=== PATIENT | female | born 1995 | race Caucasian/White ===

== ENCOUNTER 2022-01-11 14:16 | Emergency (ER) | payer OTHER, SELFPAY ==
[2022-01-11 14:27] VITALS: BP 149/70; PULSE 120; RESP 18; TEMP 37.3; O2SAT 100; BMI 28.5
--- NOTE | 2022-01-11 16:42 | DI.US.S_ITS ---
PROCEDURE: US OB <= 14 WEEKS FETUS INDICATIONS: VAG BLEEDING 10 WEEKS OUTSIDE/PRIOR DATING DATA: Last menstrual period (LMP): November 02, 2021. LMP-based estimated date of delivery (ALLY): August 09, 2022 First dating scan (date): January 11, 2022. Estimated date of delivery (ALLY) from first dating scan: August 04, 2022 TECHNIQUE: Real-time scanning was performed of the fetus and maternal pelvic organs, with image documentation. Endovaginal scanning was also performed to better visualize the fetus and maternal ovaries. COMPARISON: None. FINDINGS: Embryo: Mean crown-rump length measures 3.8 cm, compatible with a 10 week, 5 day gestation. Heart rate: 175 beats per minute Maternal organs: Ovaries demonstrate left corpus luteum. Hypoechoic lesions within the uterus, likely reflecting nabothian cysts. IMPRESSION: Single live intrauterine gestation as detailed above. We strive to produce accurate, complete, and clear reports of imaging services. To assist us in improving patient care, this report was composed using standard report templates and voice recognition software. Therefore, it may contain abnormal punctuation, insertions and/or omissions. Occasional wrong-word or sound-alike substitutions may occur. Though we review the report and make efforts to correct it, we do recommend that the report be read carefully in proper context to recognize any text inaccuracies. Dictated by: Robert Chase M.D. on 01/11/2022 at 17:28 Approved by: Robert Chase M.D. on 01/11/2022 at 17:31
[2022-01-11 18:13] VITALS: BP 120/68; PULSE 90; RESP 16; O2SAT 100
--- NOTE | 2022-01-11 18:15 | ED.FEMALEGU ---
HPI - Female Genitourinary General Chief complaint: Urogenital-Female Stated complaint: 10 wks , excessive bleeding Time Seen by Provider: 01/11/22 17:01 Source: patient Mode of arrival: Ambulatory History of Present Illness HPI Narrative: 26-year-old female nonsmoker with noncontributory medical history is a at 10 weeks presents with a chief complaint of the passage of a small dark clot vaginally that she noted in her underwear prior to arrival. She is not dizzy nor weak or lightheaded. She denies any fever or chills. She had a brief episode of pelvic cramping which has since resolved. She states that she knows her blood type is O-positive. She and her are visiting locally from [place] and [employer]. Review of Systems Review of Systems Narrative: GENERAL: Denies chills, fatigue, malaise, fever, sweats. HEENT: Denies sinus pain, ear pain, sore throat, difficulty swallowing, dizziness. RESPIRATORY: Denies dyspnea, cough, wheezing, hemoptysis, sputum. CARDIOVASCULAR: Denies chest pain, palpitations, orthopnea, edema, GASTROINTESTINAL: Denies nausea, vomiting, abdominal pain, diarrhea, constipation, melena. : Denies dysuria, frequency, incontinence, hematuria, urinary retention. MUSCULOSKELETAL: denies weakness, joint pain, or bony pain SKIN: Denies rash, skin lesions, or other NEUROLOGIC: Denies weakness, headache, numbness, change in speech, confusion, seizures, incoordination. PSYCHIATRIC: No concerning psychosocial issues. 12 point review of systems is negative except for those stated above Patient History Substance Use Type: does not use Exam Narrative Exam Narrative: GENERAL: [26 year old patient appears stated age. Well-developed patient, in mild distress. HEAD: Atraumatic. Normocephalic. EYES: Pupils equal round and reactive. Extraocular motions intact. No scleral icterus. No injection or drainage. ENT: Nose without bleeding, purulent drainage. Throat without erythema, tonsillar hypertrophy or exudate. Airway patent. NECK: Trachea midline. Non tender CARDIOVASCULAR: Regular rate and rhythm without murmurs, gallops, or rubs. RESPIRATORY: Clear to auscultation. Breath sounds equal bilaterally. No wheezes, rales, or rhonchi. GASTROINTESTINAL: Abdomen soft, non-tender, nondistended. EXTREMITIES: No edema or joint tenderness. BACK: Nontender without deformity or crepitance. No flank tenderness. NEURO: AOx3. SKIN: No rash or erythema of visible areas Initial Vital Signs Initial Vital Signs: Vital Signs Temperature 99.2 F 01/11/22 14:27 Pulse Rate 120 H 01/11/22 14:27 Respiratory Rate 18 01/11/22 14:27 Blood Pressure 149/70 H 01/11/22 14:27 Pulse Oximetry 100 01/11/22 14:27 Course Orders Ordered: ED Orders 01/11/22 16:42 US OB <= 14 weeks fetus Stat 01/11/22 17:10 BMP [Basic Metabolic Panel] Stat CBC Auto Diff [Complete Blood Count AUTO DIFF] Stat Type and Screen Stat Vital Signs Vital signs: Vital Signs - 8 hr 01/11/22 14:27 01/11/22 18:13 Temperature 99.2 F Pulse Rate 120 H 90 Respiratory Rate 18 16 Blood Pressure 149/70 H 120/68 Pulse Oximetry 100 100 MDM - Female Genitourinary Lab Data Result diagrams: 01/11/22 17:10 01/11/22 17:10 Labs: Lab Results 01/11/22 01/11/22 Range/Units 17:10 17:10 WBC 10.0 (4.5-11.0) X10^3/uL RBC 4.53 (4.0-5.2) X10^6/uL Hgb 13.6 (12.0-16.0) g/dL Hct 39.4 (36-46) % MCV 87.0 (80-100) fL MCH 30.1 (26-34) PG MCHC 34.5 (30-36) % RDW 13.0 (11.6-14.8) % Plt Count 258 (150-400) X10^3/uL Neut % (Auto) 72.1 (50-75) % Lymph % (Auto) 20.5 L (25-40) % [place] % (Auto) 6.0 (3-14) % Eos % (Auto) 0.8 L (2-4) % Baso % (Auto) 0.6 (0-2) % Neut # (Auto) 7200 H (8920-7574) /uL Lymph # (Auto) 2100 (7577-2410) /uL [place] # (Auto) 600 (0-900) /uL Eos # (Auto) 100 (0-450) /uL Baso # (Auto) 100 (0-100) /uL Sodium 136 L (137-145) mmol/L Potassium 3.7 (3.4-5.1) mmol/L Chloride 105 (98-107) mmol/L Carbon Dioxide 23 (22-32) mmol/L BUN 7 (7-17) mg/dL Creatinine 0.33 L (0.52-1.04) mg/dL Estimated GFR > 60.0 (>60) mL/min BUN/Creatinine Ratio 21.2 (6-22) Glucose 87 (70-100) mg/dL Calcium 9.6 (8.4-10.2) mg/dL Point of Care Testing Test Results Positive Urine Dip Bedside Urine Glucose Negative Bedside Urine Bilirubin - Negative Bedside Urine Ketone - Negative Urine Specific Reading 1.015 Bedside Urine Occult Blood ++ Bedside Urine pH 6.0 Bedside Urine Protein - Negative Bedside Urine Urobilinogen - Negative Bedside Urine Nitrite - Negative Bedside Urine Leukocytes - Negative Esterase Imaging Data US - OB: Radiologist's Impression: [place] [address] Ultrasound Report Signed Patient: Veena Vega MR#: [id number] : 1995 Acct:[id number] Age/Sex: 26 / F Date of Service: 01/11/22 Loc: Accession Number: [id number] ?? Procedure: US OB <= 14 weeks fetus Ordering Provider: Marivel Harris PROCEDURE:? US OB <= 14 WEEKS FETUS ? INDICATIONS:? VAG BLEEDING 10 WEEKS ? OUTSIDE/PRIOR DATING DATA:? Last menstrual period (LMP):? November 02, 2021.? LMP-based estimated date of delivery (ALLY):? August 09, 2022 First dating scan (date):? January 11, 2022. Estimated date of delivery (ALLY) from first dating scan:? August 04, 2022 ? TECHNIQUE:? Real-time scanning was performed of the fetus and maternal pelvic organs, with image documentation.? Endovaginal scanning was also performed to better visualize the fetus and maternal ovaries.? ? COMPARISON:? None. ? FINDINGS:? ? Embryo:? Mean crown-rump length measures 3.8 cm, compatible with a 10 week, 5 day gestation. Heart rate:? 175 beats per minute ? Maternal organs:? Ovaries demonstrate left corpus luteum. ? Hypoechoic lesions within the uterus, likely reflecting nabothian cysts. ? ? IMPRESSION:? Single live intrauterine gestation as detailed above. ? We strive to produce accurate, complete, and clear reports of imaging services. To assist us in improving patient care, this report was composed using standard report templates and voice recognition software. Therefore, it may contain abnormal punctuation, insertions and/or omissions. Occasional wrong-word or sound-alike substitutions may occur. Though we review the report and make efforts to correct it, we do recommend that the report be read carefully in proper context to recognize any text inaccuracies. ? Dictated by: Robert Chase M.D. on 01/11/2022 at 17:28 ? ? Approved by: Robert Chase M.D. on 01/11/2022 at 17:31 ? Discharge Plan Departure Patient Disposition: Home Clinical Impression: First-trimester bleeding Instructions: DI for Vaginal Bleeding During Activity Restrictions/Additional Instructions: *You have been diagnosed with [1 minor bleeding in 1st trimester. Your history and physical exam are very reassuring as are the blood work and ultrasound. As we discussed, there is no way to definitively say this is not early miscarriage, but this is why we encourage close follow up with your medical team *What to do: *Please continue to take your regular medications as directed. [ ] New medication prescriptions sent to your pharmacy: [ ] [ ] New medication written as a paper prescription [x ] No new medications given *Please follow up with your primary care provider in 2-3 days, call for an appointment. Let them know you were seen in the Emergency Department and that we ask that you be seen in follow up. We will electronically transmit a record of today's note if your PCP is in our system *If you do not have a primary care provider please contact the [facility] Resource line at [phone]. They will ask some questions about your medical history and help get you set up with a doctor in the community. *Return to Emergency Department if you should have any new, worsening or concerning symptoms, such as [fever greater than 101 F, dizziness, weakness, lightheadedness, increased bleeding such as that which would saturate 1 pad per hour, or other bothersome symptoms
[2022-01-11 18:25] LABS: Add Manual Diff / Slide Review NO; Basophils Absolute Auto 100 /uL (0-100); Basophils Percent Auto 0.6 % (0-2); Eosinophils Absolute Auto 100 /uL (0-450); Eosinophils Percent Auto 0.8 % (2-4); Hematocrit 39.4 % (36-46); Hemoglobin 13.6 g/dL (12.0-16.0); Lymphocytes Absolute Auto 2100 /uL (1100-4500); Lymphocytes Percent Auto 20.5 % (25-40); Mean Corpuscular HGB Conc 34.5 % (30-36); Mean Corpuscular Hemoglobin 30.1 PG (26-34); Monocytes Absolute Auto 600 /uL (0-900); Neutrophils Absolute Auto 7200 /uL (1500-7000); Neutrophils Percent Auto 72.1 % (50-75); Platelet Count 258 X10^3/uL (150-400); Red Blood Cell Count 4.53 X10^6/uL (4.0-5.2)
[2022-01-11 18:37] LABS: BUN Creatinine Ratio 21.2 (6-22); Blood Urea Nitrogen 7 mg/dL (7-17); Calcium 9.6 mg/dL (8.4-10.2); Carbon Dioxide 23 mmol/L (22-32); Chloride 105 mmol/L (98-107); Estimated Glomerular Filt Rate > 60.0 mL/min (>60); Glucose 87 mg/dL (70-100); HEMOLYSIS < 15 (0-50); Potassium 3.7 mmol/L (3.4-5.1); Sodium 136 mmol/L (137-145)
== END 2022-01-11 20:41 | disposition home or self-care (01) ==
PROVIDERS: Emergency Provider Emergency Medicine
DX: O20.9 Hemorrhage in early pregnancy, unspecified (principal); Z3A.10 10 weeks gestation of pregnancy
CPT/HCPCS: 76801; 76817; 80048; 81003; 81025; 85025; 86850; 86900; 86901; 99282; 99284

== ENCOUNTER → 2022-06-20 17:37 | Outpatient (CLI) | payer OTHER, SELFPAY | PROVIDERS: Visit Provider Obstetrics & Gynecology | DX: Z34.03 Encounter for supervision of normal first pregnancy, third trimester (principal) | CPT/HCPCS: 87086 ==

== ENCOUNTER 2022-06-30 18:13 | Outpatient (CLI) | payer OTHER, SELFPAY | END 2022-06-30 20:00 | disposition home or self-care (01) | LOC: OB 07-03 12:52 | PROVIDERS: Referring Provider Obstetrics & Gynecology; Visit Provider Obstetrics & Gynecology | DX: O36.8130 Decreased fetal movements, third trimester, not applicable or unspecified (principal); Z3A.34 34 weeks gestation of pregnancy | CPT/HCPCS: 59025; G0378; G0379 ==

== ENCOUNTER 2022-07-03 09:17 | Observation (INO) | payer OTHER, SELFPAY ==
[2022-07-03 10:22] LABS: Appearance Urine UA CLOUDY; Bilirubin Urine UA NEGATIVE (NEGATIVE); Color Urine UA RED; Glucose Urine UA NEGATIVE (Negative); Ketones Urine UA NEGATIVE (NEGATIVE); Leukocyte Esterase Urine UA 2+ (NEGATIVE); Nitrite Urine UA NEGATIVE (Negative); Protein Urine UA 2+ (Negative); Urobilinogen Urine UA 0.2 E.U./dL (0.2)
[2022-07-03 10:26] LABS: pH Urine UA 6.5 (4.5-8.0)
[2022-07-03 10:27] LABS: Bacteria Urine Moderate (10-30); Culture Indicated Urine Specimen Cultured; Occult Blood Urine UA 4+ (Negative); RBC Urine >100/HPF (0-5/HPF); Squamous Epithelial Cell Urine 0-1 /HPF (0-5/HPF); WBC Urine 5-10/HPF (0-5/HPF)
--- NOTE | 2022-07-03 10:40 | PM.OBTRLD ---
Visit Information Visit Information Date of evaluation: 07/03/22 Primary OB Provider: Rashid Licea On-call OB Provider: Cathy Keller Reason for Evaluation: Yes other Comments/Additional reasons for admission: Hematuria, dysuria 26 yo G1 at 34wk5d LAYA presents due to hematuria. She had 3-4 days of dysuria and urinary frequency. Dysuria has improved, but having intermittent cramping in lower back, similar to her past menstrual cramps. Saw blood in her urine today. Not feeling abdominal tightening. recent urine culture in office 2 weeks ago was negative. She had reported being treated for a UTI early May, had just finished antibiotics. On review of her records after her recent new OB office visit, also noted treated for UTI in December, With Enterococcus and Staph haemolyticus in December urine culture. Positive GBS also seen in the urine. Vital Signs Vital Signs: Afebrile, BP normal [facility] Medical History (Updated 07/04/22 @ 03:48 by Cathy Keller MD) Dysmenorrhea History of PCOS Hypertension Uterine polyp Family History (Updated 06/05/22 @ 15:41 by Lelo Plaza RN) Father Hypertension Hyperlipidemia Grandfather Diabetes mellitus Myocardial infarction Grandfather Cancer Social History marital status: number of children: 0 household members: spouse lives independently: Yes housing: house pets and animals: Yes (1 cat) education level: college (elizabeth's degree) occupational status: unemployed current occupational exposures/hazards: No special khurram needs: No travel history: recent ([place] and [place]) seatbelt use: always water heater temp set < 120 deg: Yes (Will check ) working smoke detector in home: Yes fire extinguisher in home: Yes carbon monox detector in home: Yes firearms in home: Yes do you feel safe at home: Yes Smoking Status: Never smoker second hand exposure: No alcohol intake: former substance use type: does not use during the past year weight has: increased > 10 lbs well-balanced diet: daily or most days daily servings fruits/ve-4 caffeine: Yes (occasionally, aware of 200mg limit) Type(s) of exercise: none (I used to walk) Exam Vital Signs (past 8 hours): afebrile, BP normal Narrative Exam Narrative: general: Well-appearing female in no acute distress Back: No CVA tenderness bilaterally. Abdomen: Gravid. Mild discomfort with palpation in lower abdomen suprapubically. No other tenderness. Objective Labs Labs: Laboratory Results - last 24 hr 07/03/22 09:46 Urine Color Red Urine Appearance Cloudy Urine pH 6.5 Ur Specific [place] 1.010 Urine Protein 2+ H Urine Glucose (UA) Negative Urine Ketones Negative Urine Occult Blood 4+ H Urine Nitrate Negative Urine Bilirubin Negative Urine Urobilinogen 0.2 Ur Leukocyte Esterase 2+ H Urine RBC >100/hpf H Urine WBC 5-10/hpf H Ur Squamous Epith Cells 0-1 /hpf Urine Bacteria Moderate (10-30) H Ur Culture Indicated? Specimen cultured Evaluation Evaluation Comments: EFM Cat 1 [place]: no contractions Urinalysis: +blood,+protein,+le[place]k Micro: moderate bacteria, 4+rbs, 5-10wbc Diagnosis, Plan/Disposition Plan/Disposition Plan: 34wk5d with UTI, possible early pyelonephritis. Bilateral lower back discomfort, feels similar to her past dysmenorrhea,likely uterine cramping. In treating her for UTI however, will cover her for possible early pyelonephritis. UCx sent. Ceftriaxone 150 mg IM x1 given. Will discharge home on Cefpoxime 100 mg BID x7d. Discussed with her repeat urine culture after treatment and would recommend continue on an antibiotic daily for UTI suppression Will order an outpatient renal US to r/o stone or renal source of infection. OB Disposition: home
[2022-07-03] MEDS: cefTRIAXone 2,000 MG VIAL 1000 MG IM (11:55)
== END 2022-07-03 12:15 | disposition home or self-care (01) ==
PROVIDERS: Admitting Provider Obstetrics & Gynecology; Referring Provider Obstetrics & Gynecology; Visit Provider Obstetrics & Gynecology
DX: O23.43 Unspecified infection of urinary tract in pregnancy, third trimester (principal); Z3A.34 34 weeks gestation of pregnancy
CPT/HCPCS: 59025; 59050; 81001; 87086; 96372; G0378; G0379; J0696

== ENCOUNTER → 2022-07-06 16:55 | Outpatient (CLI) | payer OTHER, SELFPAY ==
--- NOTE | 2022-07-06 16:57 | DI.US.S_ITS ---
PROCEDURE: US RENAL COMPLETE INDICATIONS: evaluate for stones, abcess TECHNIQUE: Real-time scanning was performed of the kidneys and bladder, with image documentation. COMPARISON: None. FINDINGS: Kidneys: Kidneys are normal in size. Right kidney measures 12.8 cm long; left kidney measures 11.0 cm long. Right renal cortical thickness is 1.2 cm; left renal cortical thickness is 1.4 cm. Renal cortical echotexture is normal. There is mild right hydronephrosis which persists postvoid. No right nephrolithiasis. There is a 7 mm echogenic focus within the lateral left kidney suggesting a nonobstructing stone. Bladder: Pre-void bladder volume is 152 mL. Post-void residual is 0 mL. Pre-void images demonstrate no intraluminal masses or stones. On pre-void images, the left ureteral jet is noted with color Doppler interrogation. (Of note, ureteral jets may not be detectable in up to 25% of cases due to insufficient differences in specific gravity between ureteral and bladder urine). Miscellaneous: No free pelvic fluid. IMPRESSION: 1. Mild right hydronephrosis which persists postvoid. 2. Nonobstructing left nephrolithiasis. Dictated by: Felicity Madrigal M.D. on 07/07/2022 at 10:17 Approved by: Felicity Madrigal M.D. on 07/07/2022 at 10:18
== END ==
PROVIDERS: Referring Provider Obstetrics & Gynecology; Visit Provider Obstetrics & Gynecology
DX: N13.2 Hydronephrosis with renal and ureteral calculous obstruction (principal); R31.9 Hematuria, unspecified
CPT/HCPCS: 76770

== ENCOUNTER 2022-07-12 04:46 | Inpatient (IN) | payer OTHER, SELFPAY ==
--- NOTE | 2022-07-12 05:23 | P.HPOB_ITS ---
OB HPI Date/Time Date of admission: 07/12/22 Date Patient Seen: 07/12/22 Time Patient Seen: 05:05 History of Present Condition Chief complaint: waterbroke : 1 Estimated Date of Delivery: 08/09/22 Estimated Gestational Age (weeks): 36 Narrative: Veena Vega is a 27 year old female G1 female who presents with spontaneous rupture membranes. When she got up but the bed, felt her water broke. Uncomfortable contractions started shortly thereafter. Denies vaginal bleeding. Feeling good movement. History of Present care: good care and other ( Care between [place], [place] and now here due to moves and visiting family) Dating criteria: LMP confirmed by 1st trimester US Ultrasounds: normal 1st trimester US and normal mid trimester US Obstetrical complications: other Medical complications: none Preadmission Labs Blood type: O (+) positive -: Antibody screen: negative, GBS status: positive (GBS bacturia), HBsAG: negative, HIV: negative and RPR/VDLR: negative -: Chlamydia screen: not detected and Gonorrhea screen: not detected -: Rubella: immune and Varicella: immune HCAB: negative Quad screen: Normal 1 hr GTT: 116 Evaluation Evaluation Baseline heart rate: 130 Variability: Average (6-10) monitor accelerations: Present Monitor Decelerations: Absent Contraction Frequency (minutes): 2 Uterine Contraction Intensity: Strong/Firm Category of Tracing: Reactive Status: Category l Dilation (cm): 4 Effacement (%): 100 Comments: grossly visible fluid, ROM PFSH Medical History Dysmenorrhea History of PCOS Hypertension Uterine polyp Family History (Updated 06/05/22 @ 15:41 by Lelo Plaza RN) Father Hypertension Hyperlipidemia Grandfather Diabetes mellitus Myocardial infarction Grandfather Cancer Social History marital status: number of children: 0 household members: spouse lives independently: Yes housing: house pets and animals: Yes (1 cat) education level: college (elizabeth's degree) occupational status: unemployed current occupational exposures/hazards: No special khurram needs: No travel history: recent ([place] and [place]) seatbelt use: always water heater temp set < 120 deg: Yes (Will check ) working smoke detector in home: Yes fire extinguisher in home: Yes carbon monox detector in home: Yes firearms in home: Yes do you feel safe at home: Yes Smoking Status: Never smoker second hand exposure: No alcohol intake: former substance use type: does not use during the past year weight has: increased > 10 lbs well-balanced diet: daily or most days daily servings fruits/ve-4 caffeine: Yes (occasionally, aware of 200mg limit) Type(s) of exercise: none (I used to walk) Meds Home Medications and Allergies Home Medications Medication Instructions Recorded Confirmed Type prenat.vits,franko,nxv-hqlv-sutdm 1 tab PO DAILY 06/05/22 07/04/22 History Allergies Allergy/AdvReac Type Severity Reaction Status Date / Time amoxicillin AdvReac Mild Nausea Verified 07/04/22 16:24 OB Exam Narrative Exam Narrative: VS: Afebrile, BP 127/86 Assessment and Plan Assessment and Plan Assessment and Plan narrative: 36 weeks, GBS+ SROM, labor Plan: Admit. PCN ordered for GBS prophylaxis. Reviewed option for pain management. Pt desires some IV meds currently for pain. Time Spent with Patient Total time spent with greater than 50% in coordination of care (as documented) at patient's floor/unit and/or counseling patient:: less than 15 minutes
[2022-07-12 05:58] LABS: Add Manual Diff / Slide Review NO; Basophils Absolute Auto 100 /uL (0-100); Basophils Percent Auto 0.8 % (0-2); Eosinophils Absolute Auto 100 /uL (0-450); Eosinophils Percent Auto 1.2 % (2-4); Hematocrit 38.4 % (36-46); Hemoglobin 13.2 g/dL (12.0-16.0); Lymphocytes Absolute Auto 2800 /uL (1100-4500); Lymphocytes Percent Auto 22.7 % (25-40); Mean Corpuscular HGB Conc 34.5 % (30-36); Mean Corpuscular Hemoglobin 29.5 PG (26-34); Mean Corpuscular Volume 85.5 fL (80-100); Monocytes Absolute Auto 900 /uL (0-900); Monocytes Percent Auto 7.2 % (3-14); Neutrophils Absolute Auto 8300 /uL (1500-7000); Neutrophils Percent Auto 68.1 % (50-75); Platelet Count 273 X10^3/uL (150-400); Red Blood Cell Count 4.48 X10^6/uL (4.0-5.2); Red Cell Distribution Width 13.9 % (11.6-14.8); White Blood Cell Count 12.3 X10^3/uL (4.5-11.0)
[2022-07-12] MEDS: fentaNYL 100 MCG/2 ML INJ 50 MCG IV (06:02)
[2022-07-12 06:04] LABS: COVID19 -Nasal RAPID Negative (Negative)
[2022-07-12] MEDS: PENICILLIN G POTASSIUM 5,000,000 UNIT in DEXTROSE 5% IN WATER 250 ML 250 UNIT IV (06:05)
[2022-07-12] MEDS: LACTATED RINGERS 1,000 ML 100 ML IV ×2 (06:05→09:00)
[2022-07-12 06:17] VITALS: BP 127/86
[2022-07-12] MEDS: PENICILLIN G POTASSIUM 3,000,000 UNIT/50 ML FROZ.PIGGY 100 UNIT IV (10:39)
--- NOTE | 2022-07-12 14:59 | PM.OBPRVD ---
Events: Labor < 37 wks Labor & Delivery Delivery date: 07/12/22 Cervical ripening method: none Induction method: none Delivery monitor: external FHT and external uterine Route of delivery: L&D Laceration Description: Perineal - 2nd Degree Delivery repair: chromic (3-0 chromic) Quantitative Blood Loss: 150 Anesthesia Type: Epidural Complications: none Narrative: She progressed to completely dilated. She began pushing, pushed approximately 2 hours and had a spontaneous vaginal delivery over an intact perineum from the THERESE position. She had slow but gradual progress from 3+ station to . EFM during 2nd stage was category 2 with variable decelerations with good recovery and moderate variability between decelerations. No nuchal cord was present. Anterior followed by posterior shoulder were delivered without difficulty with the patient pushing, followed by the remainder of the body. A baby boy was delivered at 1358. The baby cried spontaneously, appeared vigorous and was placed on the maternal abdomen. After 1 minute, cord was clamped and cut. Placenta delivered spontaneously approximately 5 minutes later. She had normal bleeding after delivery of the placenta. She was given routine Pitocin IV. On inspection she had a 2nd degree perineal laceration which was repaired in the usual fashion with 3-0 chromic. She did well and was left to recover in good condition. [place] Baby 1: gender: Male Presentation: vertex Position: Left Occiput Anterior Placenta delivery description: Spontaneous Cord Vessel Description: 3 Vessels score (1 min): 9 score (5 min): 9 weight: 5 lb 14.852 oz Plan for aftercare: Routine care
[2022-07-13] MEDS: ACETAMINOPHEN 325 MG TABLET 650 MG PO ×3 (01:20→20:07)
[2022-07-13] MEDS: IBUPROFEN 600 MG TABLET PO ×3 (01:21→20:07)
--- NOTE | 2022-07-13 11:42 | PM.OBPN.1 ---
Subjective - OB Subjective Patient comments: no complaints and pain well controlled baby status: doing well feeding status: breast and bottle feeding Narrative: Pt is doing well. Denies any perineal discomfort, reports that her discomfort is uterine cramping, especially with , but not severe. Cramping is tolerable with the ibuprofen. Lochia is normal. Voiding without problems. Moods are doing fine. Date Patient Seen: 07/13/22 Time Patient Seen: 11:43 Exam Vital Signs (past 8 hours): Afebrile, BP 113/74, Pulse 83 RR 16 Narrative Exam Narrative: General: Well-appearing female Abdomen: Soft, nontender, nondistended. Fundus U-1, firm, nontender Extremities: Trace pedal edema Objective Labs Result Diagrams: 07/12/22 05:40 Assessment & Plan Plan day: 1 plan OB: routine care and discharge home Comments: Patient desires discharge home today. She is doing well and ready for discharge. Discharge home today if baby is ready for discharge. instructions reviewed. Will have her come back in 2 weeks for an appointment to check on her mood, due to history of chronic anxiety, thus increased risk for depression/worsening anxiety. Time Spent With Patient Time: Total time spent is greater than 50% in coordination of care (as documented) at patient's floor/unit and/or counseling patient: Time with patient: less than 15 minutes
--- NOTE | 2022-07-13 11:54 | P.DS_ITS ---
Discharge Providers Provider Date of admission: 07/12/22 04:46 Discharge Date: 07/13/22 Consults: 07/13/22 16:28 Consult to Cement Tester Assistant Routine Comment: Discharge provider: Cathy Keller MD Summary Hospital Course Date Patient Seen: 07/13/22 Time Patient Seen: 11:55 Diagnoses: 36 week , pre term rupture membranes, labor, delivered Hospital Course: Veena Vega is a 27 year old female G1? female who presented at 36 wks0d with spontaneous rupture membranes, followed by pre-term labor. she progressed in labor and had a spontaneous vaginal delivery of a viable male . She had a second-degree perineal laceration which was repaired. She has had a normal course. Her BP is normal and her lochia has remained normal. She does not have any significant perineal discomfort, mostly feeling Normal uterine cramping, tolerable with ibuprofen. She is doing well and desires discharge home today. baby is doing well and is ready for discharge. Peripartum Data Infant Delivery Method: Natural Vaginal Laceration Description: Periurethral - 2nd Degree complications: none [place] 1: Gender: Male Disposition of : home Status at Discharge Cognitive/behavioral status at discharge: oriented and at baseline, oriented Functional status at discharge: independent ambulation Overall status at discharge: patient is progressing back to baseline Time Spent with Patient Time attestation: Total time spent providing and/or coordinating discharge services: Time spent: Less than 30 minutes Objective Labs Result Diagrams: 07/12/22 05:40 Labs: Labs were antepartum. With blood loss light after delivery, no labs Ordered. Exam Vital Signs (past 8 hours): temp 97.3? F BP 113/74, pulse 83, respiratory rate 16 Narrative Exam Narrative: General: Well-appearing female in no acute distress Psych: Mood normal. Abdomen: Soft, nontender, nondistended. Fundus U -1, firm, nontender. Extremities trace pedal edema. Const General: cooperative and healthy appearing Discharge Plan Discharge Plan Patient Disposition: Home Provider Discharge Comment: Status post delivery at 36 weeks. Status post spontaneous vaginal delivery Discharge orders & Medications Prescriptions: New acetaminophen 325 mg Tablet 650 mg PO Q6HR PRN (Reason: Pain, Mild (1-3)) Qty: 7 0RF ibuprofen 600 mg Tablet 600 mg PO Q6HR PRN (Reason: Pain, Mild (1-3)) Qty: 60 0RF Purelan Cream 1 applic topical PRN PRN (Reason: Tenderness) Qty: 7 0RF Continued prenat.vits,franko,cbq-dwml-lkgnf Tablet 1 tab PO DAILY Follow up/Referrals: Cathy Keller MD [Physician] - 2 Weeks (2 week appointment for mood check, due to risk of depression 6 week appointment for visit/IUD insertion) Diet/Activity/Treatments Diet: Regular Activity: nothing in the vagina for 6 weeks. No tampons and no intercourse. Skin/Wound/Dressing Care Report to your healthcare provider any signs of infection, such as:: chills, fever and increased pain Visit Report/Discharge Packet Instructions: DI for Labor and Delivery, Vaginal
== END 2022-07-13 22:05 | disposition home or self-care (01) | DRG 807 ==
PROVIDERS: Admitting Provider Obstetrics & Gynecology; Referring Provider Obstetrics & Gynecology; Visit Provider Obstetrics & Gynecology
DX: O42.013 Preterm premature rupture of membranes, onset of labor within 24 hours of rupture, third trimester (principal); Z37.0 Single live birth; Z3A.36 36 weeks gestation of pregnancy; Z20.822 Contact with and (suspected) exposure to COVID-19; O99.824 Streptococcus B carrier state complicating childbirth; O70.1 Second degree perineal laceration during delivery; O76 Abnormality in fetal heart rate and rhythm complicating labor and delivery
CPT/HCPCS: 01967; 36415; 59050; 59410; 85025; 86850; 86900; 86901; 87635; C9803; G0379; J2540; J3010

== ENCOUNTER → 2022-12-01 16:12 | Outpatient (CLI) | payer OTHER, SELFPAY ==
--- NOTE | 2022-12-01 16:15 | DI.RAD.S_ITS ---
PROCEDURE: XR KNEE LT 3V INDICATIONS: eval L knee pain, no injury TECHNIQUE: 3 views of the knee were acquired. COMPARISON: None. FINDINGS: Bones: No fractures or dislocations. No suspicious bony lesions. Soft tissues: No joint effusion. No suspicious soft tissue calcifications. IMPRESSION: Normal exam. Dictated by: Matt Mena M.D. on 12/01/2022 at 19:59 Approved by: Matt Mena M.D. on 12/01/2022 at 19:59
== END ==
PROVIDERS: PCP Registered Nurse Diabetes Educator; Referring Provider Registered Nurse Diabetes Educator; Visit Provider Registered Nurse Diabetes Educator
DX: M25.562 Pain in left knee (principal)
CPT/HCPCS: 73562

== ENCOUNTER → 2024-04-05 09:46 | Outpatient (CLI) | payer OTHER, SELFPAY ==
[2024-04-05 10:58] LABS: Hematocrit 42.3 % (36-46); Hemoglobin 14.6 g/dL (12.0-16.0); Mean Corpuscular HGB Conc 34.4 % (30-36); Mean Corpuscular Hemoglobin 30.1 PG (26-34); Mean Corpuscular Volume 87.4 fL (80-100); Platelet Count 282 X10^3/uL (150-400); Red Blood Cell Count 4.84 X10^6/uL (4.0-5.2); Red Cell Distribution Width 14.2 % (11.6-14.8); White Blood Cell Count 8.9 X10^3/uL (4.5-11.0)
[2024-04-05 12:33] LABS: Alanine Aminotransferase 26 IU/L (<35); Albumin 4.8 g/dL (3.5-5.0); Albumin Globulin Ratio 1.7 (1.0-2.8); Alkaline Phosphatase 73 U/L (38-126); Aspartate Aminotransferase 24 IU/L (14-36); BUN Creatinine Ratio 26.4 (6-22); Bilirubin Total 0.6 mg/dL (0.2-1.3); Blood Urea Nitrogen 14 mg/dL (7-17); Calcium 9.3 mg/dL (8.4-10.2); Carbon Dioxide 22 mmol/L (22-32); Chloride 109 mmol/L (98-107); Cholesterol 166 mg/dL (140-199); Estimated Glomerular Filt Rate > 60 mL/min (>60); Globulin 2.8 g/dL (1.7-4.1); Glucose 91 mg/dL (70-100); HDL Cholesterol 62 mg/dL (40-60); HEMOLYSIS < 15 (0-50); LDL Cholesterol Calculated 92 mg/dL (<100); Potassium 4.5 mmol/L (3.4-5.1); Sodium 139 mmol/L (137-145); Total Protein 7.6 g/dL (6.3-8.2); Triglycerides 59 mg/dL (35-150)
[2024-04-05 13:02] LABS: TSH w/ Reflex to FT4 0.85 uIU/mL (0.47-4.68)
== END ==
PROVIDERS: PCP Registered Nurse Diabetes Educator; Referring Provider Registered Nurse Diabetes Educator; Visit Provider Registered Nurse Diabetes Educator
DX: Z00.00 Encounter for general adult medical examination without abnormal findings (principal)
CPT/HCPCS: 36415; 80053; 80061; 84443; 85027

== ENCOUNTER → 2024-04-16 15:21 | Outpatient (CLI) | payer OTHER, SELFPAY ==
--- NOTE | 2024-04-16 15:21 | DI.US.S_ITS ---
PROCEDURE: US PELVIC COMPLETE INDICATIONS: eval L pelvic pain with ovulation TECHNIQUE: Real-time scanning was performed of the pelvic organs, with image documentation. Additional endovaginal scanning was necessary due to incomplete visualization of the adnexal and endometrial structures by transabdominal scanning. COMPARISON: None. FINDINGS: Uterus: Uterus is anteverted and normal in size at 7.3 x 4.4 x 3.3 cm. The myometrium is homogeneous. The endometrium measures 5 mm combined thickness. IUD within the lower uterine segment. Ovaries: The right ovary measures 3.1 x 2.0 x 2.6 cm, with a calculated ovarian volume of 8 cc. The left ovary measures 2.6 x 2.0 x 2.0 cm, with a calculated ovarian volume of 5 cc. The ovaries have a normal sonographic appearance. Less than 12 follicles can be seen in each ovary. No adnexal masses are seen. Other: No pathologic free abdominal or pelvic fluid. IMPRESSION: IUD within the lower uterine segment. Recommend repositioning. We strive to produce accurate, complete, and clear reports of imaging services. To assist us in improving patient care, this report was composed using standard report templates and voice recognition software. Therefore, it may contain abnormal punctuation, insertions and/or omissions. Occasional wrong-word or sound-alike substitutions may occur. Though we review the report and make efforts to correct it, we do recommend that the report be read carefully in proper context to recognize any text inaccuracies. Dictated by: Kenton Ortiz M.D. on 04/16/2024 at 17:17 Approved by: Kenton Ortiz M.D. on 04/16/2024 at 17:18
== END ==
LOC: US 15:21
PROVIDERS: PCP Registered Nurse Diabetes Educator; Referring Provider Registered Nurse Diabetes Educator; Visit Provider Registered Nurse Diabetes Educator
DX: N94.0 Mittelschmerz (principal); R10.2 Pelvic and perineal pain; Z97.5 Presence of (intrauterine) contraceptive device
CPT/HCPCS: 76830; 76856; 93975